=== PATIENT | female | born 1990 | race Caucasian/White ===

== ENCOUNTER 2021-12-29 08:16 | Outpatient (CLI) | payer BC, SELFPAY ==
--- NOTE | 2021-12-29 08:15 | CRLHL7_ITS ---
For Patients: As a result of the Cures Act, medical imaging exams and procedure reports are released immediately into your electronic medical record. You may view this report before your referring provider. If you have questions, please contact your health care provider. INDICATION: First trimester scan, establish dates. COMPARISON: None. TECHNIQUE: Real-time paez-scale imaging of the pelvis was performed. FINDINGS: Sonographic imaging demonstrates a single living intrauterine gestation. The embryo demonstrates a regular cardiac rate measuring 115 beats per minute. The embryo`s crown-rump length measurement of 0.6 cm corresponds to a gestational age of 6 weeks 3 days with a sonographic due date of August 21, 2022. There is a normal-appearing yolk sac measuring 3 mm. There are no gross abnormalities noted within the embryo at this early state of development. The placenta has not yet developed. The gestational sac has a normal appearance and there is no evidence of a perigestational hemorrhage. The amount of fluid within the sac appears appropriate for gestational age. The cervix is closed. The myometrium appears normal. The ovaries are of normal size. The right ovary measures 5.7 x 2.2 x 2.1 cm. The left ovary measures 5.2 x 3.2 x 3.1 cm. There are 2 cysts in the left ovary one of which measures 3.1 x 2.3 x 2.5 cm and is completely cystic. There is a smaller cyst measuring 2.1 x 1.5 x 1.3 cm likely the corpus luteum cyst of . There are no suspicious fluid collections noted in the cul-de-sac. IMPRESSION: Normal first trimester OB ultrasound exam. Gestational age calculated at 6 weeks 3 days with a sonographic due date of August 21, 2022. Dictated by Jeremías Schreiber MD @ 12/29/2021 10:10:54 AM (Electronically Signed)
== END 2021-12-29 08:17 | disposition home or self-care (01) ==
PROVIDERS: Visit Provider Advanced Practice Midwife
DX: Z34.91 Encounter for supervision of normal pregnancy, unspecified, first trimester (principal); Z3A.08 8 weeks gestation of pregnancy
CPT/HCPCS: 76817

== ENCOUNTER 2021-12-29 10:13 | Outpatient (CLI) | payer BC, SELFPAY ==
--- OUTSIDE RECORDS SUMMARY | 2021-12-29 10:16 | XMS_ITS | Encounter Summary ---
:1990 Author Organization [facility] Address [address] [place] [address] Care Team Providers Name Role Phone Shreya Mccurdy MD Primary Care Provider [phone] Reason for Visit Reason Onset Date Comments Med Refill 02/24/2021 Encounter Details Date Type Department Care Team Description 02/24/2021 Refill [place], Encounter for [address] [place] [address] [address] Shreya Palmer MD surveillance of [place], [place] [address] [place] [address] contraceptive pills [phone] [place] [address] (Wo rk) Social History Tobacco Use Types Packs/Day Years Used Date Never Smoker Smokeless Tobacco: Never Used Alcohol Use Standard Drinks/Week Comments Yes 1 (1 standard drink = 0.6 oz pure alcoho l) occasional Alcohol Habits Answer Date Recorded How often do you have a drink containing alcohol? 2-4 times a month 03/01/2020 How many drinks containing alcohol do you have on a Not aske d typical day when you are drinking? How often do you have six or more drinks on one Not asked occasion? Comment: occasional 02/24/2019 Physical Activity Answer Date Recorded On average, how many days per week do you engage in moderate to 5 days 02/24/2019 strenuous exercise (like walking fast, running, jogging, dancing, swimming, biking, or other activities that cause a light or heavy sweat)? On average, how many minutes do you engage in exercise at th is 60 min 02/24/2019 level? Education Answer Date Recorded What is the highest level of school Bachelor's degree (e.g., BA, AB, 02/01/2018 you have completed or the highest BS) degree you have received? Sex Assigned at Date Recorded Female 02/25/2019 2:21 PM REFUELER documented as of this encounter Miscellaneous Notes Telephone Encounter - Edilma So LPN - 02/24/2021 3:41 PM REFUELER Last visit in provider department: 03/01/20 Last visit requested medication was discussed:03/01/20 ANTHONY Alvarez PA-C Upcoming appointment with provider: 03/08/[address] Mccurdy Last Rx: 03/01/20 #84 with 3 refills Requested Prescriptions Pending Prescriptions Disp Refills ??? levonorgestrel-ethinyl estradiol (NORDETTE) 0.15-30 MG-MCG per tablet 84 tablet 3 Sig: Take 1 tablet by mouth 1 (one) time each day Labs:02/07/18 PAP Vitals: BP Readings from Last 2 Encounters: 03/01/20 122/70 02/24/19 120/70 ELER documented in this encounter Plan of Treatment Not on filedocumented as of this encounter Visit Diagnoses Diagnosis Encounter for surveillance of contracept maximilian pills documented in this encounter Care Teams High Pressure Kettle Operator Relationship Specialty Start Date End Date Shreya Mccurdy MD PCP - General Family Medicine 01/28/[address] [place] [address] 11 [place] [address] documented as of this encounter
--- OUTSIDE RECORDS SUMMARY | 2021-12-29 10:16 | XMS_ITS | Encounter Summary ---
:1990 Author Organization [facility] Address [address] [place] [id number] Care Team Providers Name Role Phone Shreya Mccurdy MD Primary Care Provider [phone] Encounter Details Date Type Department Care Team Description 03/15/2021 [facility] Screening for diabetes melli tus; [address], [place], [place] [address] Social History Tobacco Use Types Packs/Day Years [...] minutes do you engage in exercise at is 60 min 02/24/2019 level? Education Answer Date Recorded What is the highest level of school Bachelor's degree (e.g., BA, AB, 02/01/2018 you have completed or the highest BS) degree you have received? 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 LIPID PANEL Routine 03/15/2021 8:22 AM Screening, lipid Resul ts for this GYMNASTIC TEACHER procedure are i n the results section . documented in this encounter Results (ABNORMAL) Lipid panel (03/15/2021 8:22 AM GYMNASTIC TEACHER) athologist Signature Cholesterol 198 0 - 199 03/15/2021 [facility] mg/dL 2:03 PM [facility] Comment: Recommended by National Cholesterol Education Program (ATP III) -------- Cholesterol Ranges -------- <200 ?Desirable 200-239 ? Borderline high >=240 ? High Triglycerides 69 0 - 149 mg/dL 03/15/2021 2:03 PM [facility] Comment: -------- TRIG Ranges -------- <150 ?Normal 150-199 ? Borderline high 200-499 ? High >=500 ? Very high HDL 56 40 - 250 mg/dL 03/15/2021 2:03 PM [facility] Comment: -------- HDL Ranges -------- <40 ?Low 40-59 ?Normal >=60 ? Optimal LDL Calculated 128 (H) 0 - 99 mg/dL 03/15/2021 2:03 PM [facility] Comment: -------- LDL Ranges -------- <100 ? Optimal 100-129 ?Near optimal/above op timal 130-159 ?Borderline high 160-189 ?High >=190 ?Very high Fasting? Yes 03/15/2021 8:24 AM GYMNASTIC TEACHER [facility] Specimen Anatomical Collection Method Collection Time Receive d Time (Source) Location / / Volume Laterality Blood (Blood, 03/15/2021 8:22 AM 03/15/19 Venous) GYMNASTIC TEACHER 12:46 PM GYMNASTIC TEACHER Shreya Mccurdy MD LAB BLOOD ORDERABLES Performing Organization Address City/[facility]/ZIP Code Phon e Number [facility] [address] [place] [address] Glucose, fasting (03/15/2021 8:22 AM GYMNASTIC TEACHER) P athologist Signature Glucose 95 70 - 100 03/15/2021 [facility] mg/dL 2:03 PM GYMNASTIC TEACHER [facility] Specimen Anatomical Collection Method Collection Time Receive d Time (Source) Location / / Volume Laterality Blood (Blood, 03/15/2021 8:22 AM 03/15/19 Venous) GYMNASTIC TEACHER 12:46 PM GYMNASTIC TEACHER Shreya Mccurdy MD LAB BLOOD ORDERABLES Performing Organization Address City/State/ZIP Code Phon e Number [facility] [address] [place] [address] documented in this encounter Visit Diagnoses Diagnosis Screening for diabetes mellitus Screening, lipid documented in this encounter Care Teams Grinder Set Up Operator Centerless Relationship Specialty Start Date End Date Shreya Mccurdy MD PCP - General Family Medicine 01/28/[address] [place] [address] 11 [place] [id number] documented as of this encounter
--- OUTSIDE RECORDS SUMMARY | 2021-12-29 10:16 | XMS_ITS | Encounter Summary ---
:1990 Author Organization [facility] Address [address] [place] [address] Care Team Providers Name Role Phone Faith Alvarez PA-C Primary Care Provider Unavailable Reason for Visit Reason Comments Annual Exam Encounter Details Date Type Department Care Team Description 03/01/2020 Office Visit [place] Faith Alvarez, Annual physical exam (Primar y Dx); [address] Encounter for surveillance o f contraceptive pills; [place], [place] [address] Immunization due; [phone] Encounter for a dministration of vaccine Social History Tobacco Use Types Packs/Day Years [...] at Date Recorded Female 02/25/2019 2:21 PM VENTILATING EXPERT documented as of this encounter Last Filed Vital Signs Vital Sign Reading Time Taken Comments Blood Pressure 122/70 03/01/2020 3:59 PM VENTILATING EXPERT Pulse 68 03/01/2020 3:59 PM VENTILATING EXPERT Temperature 36.7 ??C (98 ??F) 03/01/2020 3:59 PM VENTILATING EXPERT Respiratory Rate 14 03/01/2020 3:59 PM VENTILATING EXPERT Oxygen Saturation 98% 03/01/2020 3:59 PM VENTILATING EXPERT Inhaled Oxygen Concentration - - Weight 68.9 kg (151 lb 14.4 oz) 03/01/2020 3:59 PM VENTILATING EXPERT Height 165.5 cm (5' 5.16) 03/01/2020 3:59 PM VENTILATING EXPERT Body Mass Index 25.16 03/01/2020 3:59 PM VENTILATING EXPERT documented in this encounter Patient Instructions Patient InstructionsFaith Alvarez PA-C - 03/01/2020 4:00 PM CST Images from the original note were not included. Patient Education Health Maintenance, Female Adopting a healthy lifestyle and getting preventive care are important in promoting health and wellness. Ask your health care provider about: ?? The right schedule for you to have regular tests and exams. ?? Things you can do on your own to prevent diseases and keep yourself healthy. What should I know about diet, weight, and exercise? Eat a healthy diet ?? Eat a diet that includes plenty of vegetables, fruits, low-fat dairy products, and lean protein. ?? Do not eat a lot of foods that are high in solid fats, added sugars, or sodium. Maintain a healthy weight Body mass index (BMI) is used to identify weight problems. It estimates body fat based on height andweight. Your health care provider can help determine your BMI and help you achieve or maintain a healthy weight. Get regular exercise Get regular exercise. This is one of the most important things you can do for your health. Most adults should: ?? Exercise for at least 150 minutes each week. The exercise should increase your heart rate and make you sweat (moderate-intensity exercise). ?? Do strengthening exercises at least twice a week. This is in addition to the moderate-intensity exercise. ?? Spend less time sitting. Even light physical activity can be beneficial. Watch cholesterol and blood lipids Have your blood tested for lipids and cholesterol at 20 years of age, then have this test every 5 years. Have your cholesterol levels checked more often if: ?? Your lipid or cholesterol levels are high. ?? You are older than 40 years of age. ?? You are at high risk for heart disease. What should I know about cancer screening? Depending on your health history and family history, you may need to have cancer screening at various ages. This may include screening for: ?? Breast cancer. ?? Cervical cancer. ?? Colorectal cancer. ?? Skin cancer. ?? Lung cancer. What should I know about heart disease, diabetes, and high blood pressure? Blood pressure and heart disease ?? High blood pressure causes heart disease and increases the risk of stroke. This is more likely todevelop in people who have high blood pressure readings, are of descent, or are overweight. ?? Have your blood pressure checked: ? Every 3-5 years if you are 18-39 years of age. ? Every year if you are 40 years old or older. Diabetes Have regular diabetes screenings. This checks your fasting blood sugar level. Have the screening done: ?? Once every three years after age 40 if you are at a normal weight and have a low risk for diabetes. ?? More often and at a younger age if you are overweight or have a high risk for diabetes. What should I know about preventing infection? Hepatitis B If you have a higher risk for hepatitis B, you should be screened for this virus. Talk with your health care provider to find out if you are at risk for hepatitis B infection. Hepatitis C Testing is recommended for: ?? Everyone born from 1945 through 1965. ?? Anyone with known risk factors for hepatitis C. Sexually transmitted infections (STIs) ?? Get screened for STIs, including gonorrhea and chlamydia, if: ? You are sexually active and are younger than 24 years of age. ? You are older than 24 years of age and your health care provider tells you that you are at risk for this type of infection. ? Your sexual activity has changed since you were last screened, and you are at increased risk for chlamydia or gonorrhea. Ask your health care provider if you are at risk. ?? Ask your health care provider about whether you are at high risk for HIV. Your health care provider may recommend a prescription medicine to help prevent HIV infection. If you choose to take medicine to prevent HIV, you should first get tested for HIV. You should then be tested every 3 months for as long as you are taking the medicine. ?? If you are about to stop having your period (premenopausal) and you may become , seek counseling before you get . ?? Take 400 to 800 micrograms (mcg) of folic acid every day if you become . ?? Ask for control (contraception) if you want to prevent . Osteoporosis and menopause Osteoporosis is a disease in which the bones lose minerals and strength with aging. This can result in bone fractures. If you are 65 years old or older, or if you are at risk for osteoporosis and fractures, ask your health care provider if you should: ?? Be screened for bone loss. ?? Take a calcium or vitamin D supplement to lower your risk of fractures. ?? Be given hormone replacement therapy (HRT) to treat symptoms of menopause. Follow these instructions at home: Lifestyle ?? Do not use any products that contain nicotine or tobacco, such as cigarettes, e-cigarettes, and chewing tobacco. If you need help quitting, ask your health care provider. ?? Do not use street drugs. ?? Do not share needles. ?? Ask your health care provider for help if you need support or information about quitting drugs. Alcohol use ?? Do not drink alcohol if: ? Your health care provider tells you not to drink. ? You are , may be , or are planning to become . ?? If you drink alcohol: ? Limit how much you use to 0-1 drink a day. ? Limit intake if you are . ?? Be aware of how much alcohol is in your drink. In the [place] one drink equals one 12 oz bottle of beer (355 mL), one 5 oz glass of wine (148 mL), or one 1?? oz glass of hard liquor (44 mL). General instructions ?? Schedule regular health, dental, and eye exams. ?? Stay current with your vaccines. ?? Tell your health care provider if: ? You often feel depressed. ? You have ever been abused or do not feel safe at home. Summary ?? Adopting a healthy lifestyle and getting preventive care are important in promoting health and wellness. ?? Follow your health care provider's instructions about healthy diet, exercising, and getting tested or screened for diseases. ?? Follow your health care provider's instructions on monitoring your cholesterol and blood pressure. This information is not intended to replace advice given to you by your health care provider. Make sure you discuss any questions you have with your health care provider. Document Released: 08/21/2011 Document Revised: 01/29/2019 Document Reviewed: 01/29/2019 VFA Interactive Patient Education ?? 2020 [employer]. ILATING EXPERT documented in this encounter Progress Notes Faith Alvarez PA-C - 03/01/2020 4:00 PM CST Subjective Patient ID: Anika Doan is a 30 y.o. female. Chief Complaint Patient presents with ??? Annual Exam HPI This is a otherwise healthy 30-year-old female who presents today for annual exam and for refill of OCP. 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 She lives with her fianc?? in [place]. They are planning a wedding for August. She describes some stress from the last year of being a teacher in a pandemic, teaching online, starting a masters degree. However, overall she is coping remarkably well. She enjoys staying active by cycling, uses a animal trainer supervisor to continue cycling in the winter, doing barre classes. She notes that a few months ago she had 2 periods in 1 month, her menses have otherwise been very regular on the pill. It was a very stressful month when this occurred and wonders she if her menses could be affected by stress. 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 LMP 02/09/20. Sexually active in a relationship. Declines STD testing today. Last Pap smear was done and normal in January 2018. Next due in January 2021. Denies history of abnormal Pap smears. Family history is remarkable for grandmother with breast cancer in her 70s. Denies other breast, ovarian, uterine, or colon cancer's in the family. On combination OCP for contraception. She is happy with this form of contraception and would like to continue. She and her partner would like to start a family in a few years. Current Outpatient Medications: ??? levonorgestrel-ethinyl estradiol (NORDETTE) 0.15-30 MG-MCG per tablet, Take 1 tablet by mouth 1 (one) time each day, Disp: 84 tablet, Rfl: 3 Allergies as of 03/01/2020 - Reviewed 03/01/2020 Allergen Reaction Noted ??? Amoxicillin Rash Past Medical History: Diagnosis Date ??? Known health problems: none Past Surgical History: Procedure Laterality Date ??? WISDOM TOOTH EXTRACTION 2012 Family History Problem Relation Age of Onset ??? Hyperlipidemia Mother ??? Crohn's disease Brother ??? Breast cancer Paternal Grandmother in her 70's ??? Macular degeneration Paternal Grandmother ??? No Known Problems Father ??? No Known Problems Mother's Sister ??? No Known Problems Father's Sister ??? Thyroid cancer Maternal Grandmother ??? Hyperlipidemia Maternal Grandfather ??? Other Paternal Grandfather Social History Socioeconomic History ??? Marital status: Single Spouse name: None ??? Number of children: None ??? Years of education: None ??? Highest education level: Bachelor's degree (e.g., BA, AB, BS) Occupational History ??? 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 Financial resource strain: None ??? Food insecurity Worry: None Inability: None ??? Transportation needs Medical: None Non-medical: None Tobacco Use ??? Smoking status: Never Smoker ??? Smokeless tobacco: Never Used Substance and Sexual Activity ??? Alcohol use: Yes Alcohol/week: 1.0 standard drinks Types: 1 Cans of beer per week Frequency: 2-4 times a month Comment: occasional ??? Drug use: No ??? Sexual activity: Yes Partners: Male control/protection: OCP Lifestyle ??? Physical activity Days per week: 5 days Minutes per session: 60 min ??? Stress: None Relationships ??? Social connections Talks on phone: None Gets together: None Attends synagogue service: None Active member of club or organization: None Attends meetings of clubs or organizations: None Relationship status: None ??? Intimate partner violence Fear of current or ex partner: None Emotionally abused: None Physically abused: None Forced sexual activity: None Other Topics Concern ??? None Social History Narrative Enjoys weightlifting, yoga, and cycling for physical activity. Review of Systems HEENT, Eyes, respiratory, cardio, GI, genitourinary, endocrine, musculoskeletal, neurologic and psychiatric history were reviewed and negative except as per HPI. Immunization History Administered Date(s) Administered ??? Influenza 6mo-49yrs Quad Preservative Free IM 02/06/2017, 02/07/2018, 02/24/2019, 03/01/2020 ??? Tdap 03/01/2020 Objective Visit Vitals BP 122/70 (BP Location: Right arm, Patient Position: Sitting) Pulse 68 Temp 36.7 ??C (98 ??F) (Temporal) Resp 14 Ht 1.655 m (5' 5.16) Wt 68.9 kg (151 lb 14.4 oz) SpO2 98% BMI 25.16 kg/m?? Smoking Status Never Smoker BSA 1.78 m?? Physical Exam Vitals signs and nursing note reviewed. Constitutional: General: She is not in acute distress. Appearance: Normal appearance. She is well-developed. HENT: Head: Normocephalic and atraumatic. Right Ear: Tympanic membrane, ear canal and external ear normal. Left Ear: Tympanic membrane, ear canal and external ear normal. Nose: Nose normal. No congestion or rhinorrhea. Mouth/Throat: Mouth: Mucous membranes are moist. Pharynx: Oropharynx is clear. No oropharyngeal exudate or posterior oropharyngeal erythema. Eyes: Extraocular Movements: Extraocular movements intact. Conjunctiva/sclera: Conjunctivae normal. Pupils: Pupils are equal, round, and reactive to light. Neck: Musculoskeletal: Normal range of motion and neck supple. Thyroid: No thyromegaly. Cardiovascular: Rate and Rhythm: Normal rate and regular rhythm. Heart sounds: Normal heart sounds. No murmur. Pulmonary: Effort: Pulmonary effort is normal. Breath sounds: Normal breath sounds. No wheezing or rales. Abdominal: General: Bowel sounds are normal. Palpations: Abdomen is soft. There is no mass. Tenderness: There is no abdominal tenderness. Musculoskeletal: General: No deformity or signs of injury. Lymphadenopathy: Cervical: No cervical adenopathy. Skin: General: Skin is warm and dry. Capillary Refill: Capillary refill takes less than 2 seconds. Findings: No rash. Neurological: General: No focal deficit present. Mental Status: She is alert. Deep Tendon Reflexes: Reflexes normal. Psychiatric: Attention and Perception: Attention normal. Mood and Affect: Mood and affect normal. Speech: Speech normal. Behavior: Behavior normal. Thought Content: Thought content normal. No visits with results within 30 Day(s) from this visit. Latest known visit with results is: No results found for any previous visit. Assessment/Plan Diagnoses and all orders for this visit: Annual physical exam Encounter for surveillance of contraceptive pills - levonorgestrel-ethinyl estradiol (NORDETTE) 0.15-30 MG-MCG per tablet; Take 1 tablet by mouth 1 (one) time each day Immunization due - Tdap vaccine greater than or equal to 7yo IM Encounter for administration of vaccine - Flu Vaccine 6mo-49yrs Quad Preservative Free IM Satisfactory annual exam. Combination OCP refilled for 1 year. Immunizations updated today per orders. Declines STD testing. Pap smears up-to-date, will be due at annual exam next year. No indications for early breast cancer colon cancer screening. Discussed breast self exams. Encourage patient to continue her healthy lifestyle. See AVS for additional patient education. Return in 1 year for next annual exam, sooner if concerns. Questions answered, patient verbalized understanding and is in agreement with plan. This dictation was created using voice recognition software and therefore may contain errors that went unnoticed. Faith Alvarez PA-C ILATING EXPERT documented in this encounter Plan of Treatment Not on filedocumented as of this encounter Visit Diagnoses Diagnosis Annual physical exam - Primary Routine general medical examination at a health care facility Encounter for surveillance of contracept maximilian pills Immunization due Encounter for administration of vaccine documented in this encounter Care Teams Maintenance Painter Relationship Specialty Start Date End Date Faith Alvarez PA-C PCP - General Family Medicine 12/13/1804/19 documented as of this encounter
--- OUTSIDE RECORDS SUMMARY | 2021-12-29 10:16 | XMS_ITS | Encounter Summary ---
:1990 Author Organization [facility] Address [address] [place] [address] Care Team Providers Name Role Phone Faith Alvarez PA-C Primary Care Provider Unavailable Reason for Visit Reason Comments Med Refill Encounter Details Date Type Department Care Team Description 04/07/2019 Refill [place] Faith Alvarez, Encounter for surveillance [address] [facility] [address] [facility] [address] of contraceptive pills [place], [place] [address] Social History Tobacco Use Types [...] at Date Recorded Female 02/25/2019 2:21 PM ADULT MINISTRIES DIRECTOR documented as of this encounter Miscellaneous Notes Telephone Encounter - Faith Alvarez PA-C - 04/09/2019 8:56 AM CST New rx sent. T MINISTRIES DIRECTOR Telephone Encounter - Janelle Martines LPN - 04/08/2019 2:57 PM CST Refill RX please:) T MINISTRIES DIRECTOR Telephone Encounter - Annmarie Desai LPN - 04/08/2019 10:15 AM ADULT MINISTRIES DIRECTOR Requested Prescriptions Pending Prescriptions Disp Refills ??? MARLISSA 0.15-30 MG-MCG per tablet [Pharmacy Med Name: MARLISSA 0.15-30MG-MCG TABS] 84 tablet 0 Sig: TAKE ONE TABLET BY MOUTH EVERY DAY #84, 3 refills FAXED 02/24/2019 to [place] [address] (requesting pharmacy) E-Prescribing Status Outpatient Medication Detail levonorgestrel-ethinyl estradiol (ALTAVERA) 0.15-30 MG-MCG per tablet Sig: Take 1 tablet by mouth 1 (one) time each day Sent to pharmacy as: Levonorgestrel-Ethinyl Estrad 0.15-30 MG-MCG Oral Tablet (ALTAVERA) Class: Fax Route: Oral E-Prescribing Status: Transmission to pharmacy failed (02/24/2019 ??4:18 PM ADULT MINISTRIES DIRECTOR) Interface, Surescripts In faxed this order at 02/24/2019 4:18 PM. Renewals Renewal requests to authorizing provider (Faith Alvarez PA-C) prohibited Renewal provider: Carin Hernandez, DNP, UNDERWRITING SUPPORT SPECIALIST, BUTTER GRADER Was this manually faxed to pharmacy? Thank you! T MINISTRIES DIRECTOR documented in this encounter Plan of Treatment Not on filedocumented as of this encounter Visit Diagnoses Diagnosis Encounter for surveillance of contracept maximilian pills documented in this encounter Care Teams Podiatry Assistant Relationship Specialty Start Date End Date Faith Alvarez PA-C PCP - General Family Medicine 12/13/1804/19 documented as of this encounter
--- OUTSIDE RECORDS SUMMARY | 2021-12-29 10:16 | XMS_ITS | Encounter Summary ---
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 Patient due for annual exam. R PLANTATION MANAGER Telephone Encounter - Jing Grossman MA - 02/19/2020 8:09 AM SUGAR PLANTATION MANAGER Last visit in provider department: 02/24/2019 Last visit requested medication was discussed: 02/24/2019, WWBraydon Upcoming appointment with provider: 03/01/2020 Last Rx: 04/09/2019, #84, 3 refills Requested Prescriptions Pending Prescriptions Disp Refills ??? levonorgestrel-ethinyl estradiol (NORDETTE) 0.15-30 MG-MCG per tablet [Pharmacy Med Name: LEVONORGESTREL-ETHINYL 0.15-30 TABS] 84 tablet 3 Sig: TAKE ONE TABLET BY MOUTH EVERY DAY Labs: 02/07/18 Pap Smear Vitals: BP Readings from Last 2 Encounters: 02/24/19 120/70 02/07/18 100/70 R PLANTATION MANAGER documented in this encounter Plan of Treatment Not on filedocumented as of this encounter Visit Diagnoses Diagnosis Encounter for surveillance of contracept maximilian pills documented in this encounter Care Teams Yard Engineer Relationship Specialty Start Date End Date Shreya Mccurdy MD PCP - General Family Medicine 01/28/[address] [place] [phone] documented as of this encounter
--- OUTSIDE RECORDS SUMMARY | 2021-12-29 10:16 | XMS_ITS | Encounter Summary ---
:1990 Author Organization [facility] Address [address] [place] [address] Care Team Providers Name Role Phone Chanel Cavazos MD Primary Care Provider [phone] Reason for Visit Reason Comments Annual Exam Encounter Details Date Type Department Care Team Description 03/08/2021 Office Visit [place], Screening, lipid (Primary Dx ); [address] [place] [address] [address] Chanel Palmer MD Screening for diabetes mellitus; [place], [place] [address] 111 [facility] Screening for cervical cance r; [phone] [address] Preventative health care; [place], [place] Encounter fo r surveillance of contraceptive pills [phone] Social History Tobacco Use Types Packs/Day Years [...] at Date Recorded Female 02/25/2019 2:21 PM FINANCIAL SERVICES EDUCATION CONSULTANT documented as of this encounter Last Filed Vital Signs Vital Sign Reading Time Taken Comments Blood Pressure 118/76 03/08/2021 3:15 PM FINANCIAL SERVICES EDUCATION CONSULTANT Pulse 71 03/08/2021 3:15 PM FINANCIAL SERVICES EDUCATION CONSULTANT Temperature 36.3 ??C (97.3 ??F) 03/08/2021 3:15 PM FINANCIAL SERVICES EDUCATION CONSULTANT Respiratory Rate 20 03/08/2021 3:15 PM FINANCIAL SERVICES EDUCATION CONSULTANT Oxygen Saturation 98% 03/08/2021 3:15 PM FINANCIAL SERVICES EDUCATION CONSULTANT Inhaled Oxygen Concentration - - Weight 68.8 kg (151 lb 11.2 oz) 03/08/2021 3:15 PM FINANCIAL SERVICES EDUCATION CONSULTANT Height 165 cm (5' 4.96) 03/08/2021 3:15 PM FINANCIAL SERVICES EDUCATION CONSULTANT Body Mass Index 25.27 03/08/2021 3:15 PM FINANCIAL SERVICES EDUCATION CONSULTANT documented in this encounter Progress Notes MARGOT De Leon - 03/08/2021 3:20 PM CST Nurse Note Patient is here for her annual physical. PHQ9 = 2, GAD7=0 NCIAL SERVICES EDUCATION CONSULTANT Chanel Cavazos MD - 03/08/2021 3:20 PM CST PREVENTIVE FEMALE VISIT Subjective Filomena Borden is a 31 y.o. female who presents for a routine preventive physical exam. The patient has the following concerns: 1. Has had annual pap smears, gets letters that her results are normal but the records are not in our chart. She is sure that she does not receive care elsewhere. She is agreeable to repeat pap today. 2. Missed one dose of OCP over New Years weekend. Has not missed any since and did take a double dose the next day. Period started today. 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 Social History Substance and Sexual Activity Alcohol Use Yes ??? Alcohol/week: 1.0 standard drink ??? Types: 1 Cans of beer per week Comment: occasional Social History Tobacco Use Smoking Status Never Smoker Smokeless Tobacco Never Used Diet well-balanced Exercise: Daily cycling, intermittent yoga and weightlifting Patient's medications, allergies, past medical, surgical, social and family histories were reviewed and updated as appropriate. Objective Utilization / Navigation of Health Care Systems: PHQ-9 mental health screening. Scored: DULCE-7 anxiety screening. Scored: 0 Mini-Cog test. Scored: / BMI/weight management reviewed. BMI: Body mass index is 25.27 kg/m??. VITAL SIGNS Visit Vitals BP 118/76 (BP Location: Right arm, Patient Position: Sitting) Pulse 71 Temp 36.3 ??C (97.3 ??F) (Temporal) Resp 20 Ht 1.65 m (5' 4.96) Wt 68.8 kg (151 lb 11.2 oz) LMP 03/08/2021 SpO2 98% BMI 25.27 kg/m?? Smoking Status Never Smoker BSA 1.78 m?? PHYSICAL EXAMINATION Gen: alert, NAD Psych: affect and mood normal HEENT: NCAT, eyes anicteric, no conjunctival injection Neck: supple, no LAD, thyromegaly nodules or masses palpated Heart: S1 S2 RRR, no murmur appreciated Lungs: normal work of breathing on room air, CTAB without wheezes rales or rhonchi Abdomen: normoactive BS, soft, non-distended, non-tender : normal external genitalia without lesions, physiologic vaginal discharge only consistent with menses, vaginal mucosa moist, cervix normal appearance without lesions/non-friable. Ext: no edema or cyanosis Neuro: A&Ox3, EOMI, PERRLA, visual gibson intact, speech fluent, comprehension intact, recent memory intact MSK: normal muscle tone and bulk, no obvious deformities Skin: no rashes, warm and dry Assessment/Plan Health Maintenance/Well adult exam Anticipatory guidance/counseling given included: --Discussed moderation in sodium/caffeine intake, caloric balance, sufficient fresh fruits/vegetables, fiber, daily folate intake (0.4 - 0.8mg supplement if capable of ) --Discussed eye exams & dental care --Encouraged regular exercise at least 30 minutes daily five days per week --Discussed tobacco, alcohol, or other drug use; availability of treatment for abuse. Immunizations: reviewed today, discussed vaccines that she is due for. PREVENTIVE HEALTH STUDIES Reviewed and updated health maintenance in the chart with patient. Health Maintenance Topic Date Due ??? Pap Smear 02/07/2021 ??? [facility] Pneumococcal Vaccine: 65+ Years (1 of 1 - PPSV23) 02/27/2056 ??? COVID-19 Vaccine Completed ? ? [facility] Pneumococcal Vaccine: <64 Aged Out ??? HPV Vaccines Aged Out Problem List Items Addressed This Visit Other Preventative health care {Breast cancer screening: not yet indicated {Cervical cancer screening: co-testing due today. Negative pap 2017. No history of prior abnormal paps.Has had annual paps but records do not remain in her chart; if normal 2021 co-testing then DO NOT REPEAT for 5 years. {HIV Screening: {Lipid screening: Due today for family history, elevated BMI {Statin use: not indicated {Labs: screen for DM with fasting glucose, elevated BMI risk factor Other Visit Diagnoses Screening, lipid - Primary Relevant Orders Lipid panel Screening for diabetes mellitus Relevant Orders Glucose, fasting Screening for cervical cancer Relevant Orders Pap Smear HPV High Risk DNA Detection with Genotyping Encounter for surveillance of contraceptive pills Relevant Medications levonorgestrel-ethinyl estradiol (NORDETTE) 0.15-30 MG-MCG per tablet Anticipatory guidance given for planning to pursue sometime this spring or summer. Chanel Cavazos MD NCIAL SERVICES EDUCATION CONSULTANT documented in this encounter Miscellaneous Notes Assessment & Plan Note - Chanel Cavazos MD - 03/07/2021 3:18 PM FINANCIAL SERVICES EDUCATION CONSULTANT Associated Problem(s): Preventative health care {Breast cancer screening: not yet indicated {Cervical cancer screening: co-testing due today. Negative pap 2017. No history of prior abnormal paps.Has had annual paps but records do not remain in her chart; if normal 2022 co-testing then DO NOT REPEAT for 5 years. {HIV Screening: {Lipid screening: Due today for family history, elevated BMI {Statin use: not indicated {Labs: screen for DM with fasting glucose, elevated BMI risk factor NCIAL SERVICES EDUCATION CONSULTANT documented in this encounter Plan of Treatment Not on filedocumented as of this encounter Procedures Procedure Name Priority Date/Time Associated Comments Diagnosis HPV HIGH RISK DNA Routine 03/08/2021 3:34 PM Screening for Res ults for this DETECTION WITH FINANCIAL SERVICES EDUCATION CONSULTANT cervical cancer procedure are in GENOTYPING the results section. PAP TEST Routine 03/08/2021 3:34 PM Screening for Results for this FINANCIAL SERVICES EDUCATION CONSULTANT cervical cancer procedure ar e in the results section. documented in this encounter Results Glucose, fasting (03/15/2021 8:22 AM FINANCIAL SERVICES EDUCATION CONSULTANT) athologist Signature Glucose 95 70 - 100 03/15/2021 [facility] mg/dL 2:03 PM FINANCIAL SERVICES EDUCATION CONSULTANT [facility] Specimen Anatomical Collection Method Collection Time Receive d Time (Source) Location / / Volume Laterality Blood (Blood, 03/15/2021 8:22 AM 03/15/19 Venous) FINANCIAL SERVICES EDUCATION CONSULTANT 12:46 PM FINANCIAL SERVICES EDUCATION CONSULTANT Chanel Cavazos MD LAB BLOOD ORDERABLES Performing Organization Address City/State/ZIP Code Phon e Number [facility] [address] [place] [address] (ABNORMAL) Lipid panel (03/15/2021 8:22 AM FINANCIAL SERVICES EDUCATION CONSULTANT) athologist Signature Cholesterol 198 0 - 199 03/15/2021 [facility] mg/dL 2:03 PM [facility] Comment: Recommended by National Cholesterol Education Program (ATP III) -------- Cholesterol Ranges -------- <200 ?Desirable 200-239 ? Borderline high >=240 ? High Triglycerides 69 0 - 149 mg/dL 03/15/2021 2:03 PM [facility] Comment: -------- TRIG Ranges -------- <150 ?Normal 150-199 ? Borderline high 200-499 ? High >=500 ? Very high HDL 56 40 - 250 mg/dL 03/15/2021 2:03 PM FINANCIAL SERVICES EDUCATION CONSULTANT [facility] Comment: -------- HDL Ranges -------- <40 ?Low 40-59 ?Normal >=60 ? Optimal LDL Calculated 128 (H) 0 - 99 mg/dL 03/15/2021 2:03 PM FINANCIAL SERVICES EDUCATION CONSULTANT [facility] Comment: -------- LDL Ranges -------- <100 ? Optimal 100-129 ?Near optimal/above op timal 130-159 ?Borderline high 160-189 ?High >=190 ?Very high Fasting? Yes 03/15/2021 8:24 AM FINANCIAL SERVICES EDUCATION CONSULTANT [facility] Specimen Anatomical Collection Method Collection Time Receive d Time (Source) Location / / Volume Laterality Blood (Blood, 03/15/2021 8:22 AM 03/15/19 22 Venous) FINANCIAL SERVICES EDUCATION CONSULTANT 12:46 PM FINANCIAL SERVICES EDUCATION CONSULTANT Chanel Cavazos MD LAB BLOOD ORDERABLES Performing Organization Address City/State/ZIP Code Phon e Number [facility] [address] [place] [address] HPV High Risk DNA Detection with Genotyping (03/08/2021 3:34 PM FINANCIAL SERVICES EDUCATION CONSULTANT) [facility] Method Time Signature Source Cx/Endocervi 03/14/2021 [facility] 12:32 PM LABORATORIES FINANCIAL SERVICES EDUCATION CONSULTANT HPV Type 16 Negative Negative 03/14/2021 [facility] 12:32 PM LABORATORIES FINANCIAL SERVICES EDUCATION CONSULTANT HPV Type 18 Negative Negative 03/14/2021 [facility] 12:32 PM LABORATORIES FINANCIAL SERVICES EDUCATION CONSULTANT HPV non-Type Negative Negative 03/14/2021 [facility] 16 or 18 12:32 PM LABORATORIES FINANCIAL SERVICES EDUCATION CONSULTANT Comment: The following Other High Risk HPV types were not detected: 31, 33, 35, 39, 45, 51, 52, 56, 58, 59, 66, and 68 ADDITIONAL INFORMATIO N This test has been modified from the man ufsurajr's instructions. Its performance characteri stics were determined by [facility] in a manner co nsistent with CLIA requirements. This test has not been jose ared or approved by the U.S. Food and Drug Administration. Test Performed by: [address] [address] Leg Breaker: Marcel Joshi M.D. Ph. D.; CLIA# [id number] Specimen (Source) Anatomical Collection Method Collection Time Re ceived Time Location / / Volume Laterality Pap collection 03/08/2021 3:34 03/09/2021 1:26 bottle PM FINANCIAL SERVICES EDUCATION CONSULTANT PM FINANCIAL SERVICES EDUCATION CONSULTANT Chanel Cavazos MD LAB CYTOLOGY ORDERABLES Performing Organization Address City/State/ZIP Code Phon e Number [facility] see result attachment for specific address Pap Smear (03/08/2021 3:34 PM FINANCIAL SERVICES EDUCATION CONSULTANT) Specimen Anatomical Collection Method Collection Time Receive d Time (Source) Location / / Volume Laterality Sure Path PAP, 03/08/2021 3:34 PM 022 3:22 screen FINANCIAL SERVICES EDUCATION CONSULTANT PM FINANCIAL SERVICES EDUCATION CONSULTANT Narrative [facility] - 02/20 9:12 AM FINANCIAL SERVICES EDUCATION CONSULTANT ? [facility] ? [address] ?[place] [address] ? Patient: ?FILOMENA BORDEN ??Procedure: ? 03/08/2021 15:34 /Age/Sex: ??1990, 31 Y, F ? Received: ?03/09/2021 15:22 ?Accession #: ?? [id number] Billing: ?[id number] ?Patient Location: [facility] ?OFFICE Ordered by: ?? CHANEL CAVAZOS MD ? Attending: ? CHANEL CAVAZOS, ? [facility] CYTOLOGY FINAL REPORT SPECIMEN: (A) SURE PATH PAP, SCREEN SPECIMEN DESCRIPTION: Endocervical Received bloody specimen in SurePath via l. CLINICAL INFORMATION: LMP: 03/08/2021 ?? Prev.normal: 2018 SPECIMEN ADEQUACY: Unsatisfactory for Evaluation. ??Specime n is processed and examined, but unsatisfactory for evaluation of epithel ial abnormality due to: Scant cellularity. INTERPRETATION/RESULTS: PAP Test Disclaimer Cervical cytology is a screening test pr imarily for squamous cancer and its precursors and has associated false-nega tive and false-positive results. Regular sampling and follow-up of unexplained cl inical signs and symptoms are recommended to minimize the impact of false negative and false positive results. Screened By: LIBERTAD TEMPLETON(ASCP) Signed By: ALEJANDRA MARTINEZ MD <Sign Out Signature> Reported: ??03/15/2021 ? Page 1 of 1 Chanel Cavazos MD LAB CYTOLOGY ORDERABLES Performing Organization Address City/State/ZIP Code Phon e Number [facility] [address] [place] [address] documented in this encounter Visit Diagnoses Diagnosis Screening, lipid - Primary Screening for diabetes mellitus Screening for cervical cancer Screening for malignant neoplasm of the cervix Preventative health care Routine general medical examination at a health care facility Encounter for surveillance of contracept maximilian pills documented in this encounter Care Teams Analytical Technician Relationship Specialty Start Date End Date Chanel Cavazos MD PCP - General Family Medicine 01/28/[address] [place] [phone] documented as of this encounter
--- OUTSIDE RECORDS SUMMARY | 2021-12-29 10:16 | XMS_ITS | Clinical Summary ---
:1990 Author Organization [facility] Address [address] [place] [address] Care Team Providers Name Role Phone Shreya Mccurdy MD Primary Care Provider [phone] Allergies Active Allergy Reactions Severity Noted Date Comments Amoxicillin Rash Medium Medications Medication Sig Dispensed Refills Start Date End Date Status levonorgestrel-ethinyl Take 1 tablet by 84 tablet 3 03/08/2021 Active estradiol (NORDETTE) mouth 1 (one) 0.15-30 MG-MCG per time each day tabletIndications: Encounter for surveillance of contraceptive pills Active Problems Problem Noted Date Preventative health care 03/07/2021 Last Assessment & Plan: Formatting of is note might be different from the original. {Breast cancer screening: not yet indica nayely {Cervical cancer screening: co-testing d ue today. Negative pap 2018. No history of prior abnormal paps.Has had annual paps but records do not remain in her chart; if normal 2021 co-testing then DO NOT REPEAT for 5 years. {HIV Screening: {Lipid screening: Due today for family h istory, elevated BMI {Statin use: not indicated {Labs: screen for DM with fasting glucos e, elevated BMI risk factor Immunizations Name Administration Dates Next Due Influenza 6mo-49yrs Quad Preservative 12/29/2020, 03/01/2020 , 02/24/2019, Free IM 02/07/2018, 02/06/2017 Tdap 03/01/2020 Family History Medical History Relation Comments Crohn's disease Brother No Known Problems Father No Known Problems Father's Sister Hyperlipidemia Maternal Grandfather Thyroid cancer Maternal Grandmother Hyperlipidemia Mother No Known Problems Mother's Sister Other Paternal Grandfather Breast cancer Paternal Grandmother in her 70's Macular degeneration Paternal Grandmother Relation Status Comments Brother Alive Father Alive Father's Sister Alive Maternal Grandfather Maternal Grandmother Mother Alive Mother's Sister Alive Paternal Grandfather Progressive Supranu clear Palsy Paternal Grandmother Alive Social History Tobacco Use Types Packs/Day Years [...] at Date Recorded Female 02/25/2019 2:21 PM DIRECTOR CLINICAL APPLICATIONS Last Filed Vital Signs Vital Sign Reading Time Taken Comments Blood Pressure 118/76 03/08/2021 3:15 PM DIRECTOR CLINICAL APPLICATIONS Pulse 71 03/08/2021 3:15 PM DIRECTOR CLINICAL APPLICATIONS Temperature 36.3 ??C (97.3 ??F) 03/08/2021 3:15 PM DIRECTOR CLINICAL APPLICATIONS Respiratory Rate 20 03/08/2021 3:15 PM DIRECTOR CLINICAL APPLICATIONS Oxygen Saturation 98% 03/08/2021 3:15 PM DIRECTOR CLINICAL APPLICATIONS Inhaled Oxygen Concentration - - Weight 68.8 kg (151 lb 11.2 oz) 03/08/2021 3:15 PM DIRECTOR CLINICAL APPLICATIONS Height 165 cm (5' 4.96) 03/08/2021 3:15 PM DIRECTOR CLINICAL APPLICATIONS Body Mass Index 25.27 03/08/2021 3:15 PM DIRECTOR CLINICAL APPLICATIONS Plan of Treatment Health Maintenance Due Date Last Done Comments Pap Smear 03/08/2024 03/08/2021, 02/07/2018 COVID-19 Vaccine Completed 12/29/2020, 05/13/2020, 04/15/2020 HPV Vaccines Aged Out No longer eligib le based on patient's age to complete this to pic Pneumococcal Vaccine: Aged Out No longer eligible based Pediatrics (0 to 5 Years) and on patient's age to At-Risk Patients (6 to 64 comple te this topic Years) Insurance Payer Benefit Plan / Subscriber ID Effective Dates Phone Addre ss Type Group BCBS OF BCBS OF [id number] 2017[place] [address] [place] [address] Care Teams Web Marketing Manager Relationship Specialty Start Date End Date Shreya Mccurdy MD PCP - General Family Medicine 01/28/[address] [place] [address] [phone]
--- OUTSIDE RECORDS SUMMARY | 2021-12-29 10:17 | XMS_ITS | Encounter Summary ---
:1990 Author Organization [facility] Address [address] [place] [address] Care Team Providers Name Role Phone Faith Alvarez PA-C Primary Care Provider Unavailable Reason for Visit Reason Onset Date Comments RX request 01/14/2019 Encounter Details Date Type Department Care Team Description 01/14/2019 Telephone [place] Faith Alvarez PA-C RX request 111 [facility] [address] [place], [place] [address] Social History Tobacco Use Types Packs/Day Years Used Date Never Smoker Alcohol Use Standard Drinks/Week Comments Yes 0 (1 standard drink = 0.6 oz pure alcoho l) Alcohol Habits Answer Date Recorded How often do you have a drink containing alcohol? 2-4 times a month 03/01/2020 How many drinks containing alcohol do you have on a Not aske d typical day when you are drinking? How often do you have six or more drinks on one Not asked occasion? Comment: Not asked Physical Activity Answer Date Recorded On average, [...] at Date Recorded Female 02/25/2019 2:21 PM VETERINARY SCIENCE TEACHER documented as of this encounter Miscellaneous Notes Telephone Encounter - Faith Alvarez PA-C - 01/14/2019 3:03 PM CST Refilled. RINARY SCIENCE TEACHER Telephone Encounter - Alena Schwarz RN - 01/14/2019 12:12 PM CST Forwarded to Faith Alvarez RINARY SCIENCE TEACHER Telephone Encounter - Micaela Kaiser - 01/14/2019 11:48 AM CST Patient needs her BC refilled until her physical in Feb 2019, with Sabrina[employer] in [place] please RINARY SCIENCE TEACHER documented in this encounter Plan of Treatment Not on filedocumented as of this encounter Visit Diagnoses Diagnosis Encounter for surveillance of contracept maximilian pills documented in this encounter Care Teams Thumb Sewer Relationship Specialty Start Date End Date Faith Alvarez PA-C PCP - General Family Medicine 12/13/1804/19 documented as of this encounter
--- OUTSIDE RECORDS SUMMARY | 2021-12-29 10:17 | XMS_ITS | Clinical Summary ---
:1990 Author Organization [facility] Address [address] [place] [address] Care Team Providers Name Role Phone Elsewhere, Pcp Primary Care Provider Unavailable Source Comments Patient records contain information from all sites at [facility]. For routine questions regarding patient records, call [phone] during business hours, M-F 8:00 AM - 5:00 PM Central Time. Record requests for emergency care only can be directed to [phone] at any time.[facility] Allergies Active Allergy Reactions Severity Noted Date Comments Amoxicillin Other (see comments) 12/15/2020 Medications Medication Sig Dispensed Refills Start Date End Date Status norethindrone Take 1 tablet 0 Ac tive acetate-ethinyl estradiol by mouth daily. (FEMHRT LOW DOSE) 0.5 mg-2.5 mcg per tablet cyclobenzaprine Take 1 tablet 15 tablet 0 12/15/2020 Active (FLEXERIL) 10 mg tablet (10 mg total) by mouth 3 (three) times a day as needed for muscle spasms. Active Problems No known active problems Social History Tobacco Use Types Packs/Day Years Used Date Smoking Tobacco: Never Smokeless Tobacco: Never Sex Assigned at Date Recorded Not on file Last Filed Vital Signs Vital Sign Reading Time Taken Comments Blood Pressure 124/90 12/15/2020 4:59 PM CDT Pulse 61 12/15/2020 4:59 PM CDT Temperature 36.8 ??C (98.2 ??F) 12/15/2020 4:59 PM CDT Respiratory Rate 16 12/15/2020 4:59 PM CDT Oxygen Saturation 99% 12/15/2020 4:59 PM CDT Inhaled Oxygen Concentration - - Weight 67.4 kg (148 lb 9.4 oz) 12/15/2020 4:55 PM CDT Height - - Body Mass Index - - Plan of Treatment Not on file Insurance Payer Benefit Plan / Subscriber ID Effective Phone Address T ype Group Dates STATE [facility] [id number] 2020-Pre [phone] [address] demnity AUTO sent [phone] [place] [address] [facility] [id number] 2017-Prese [phone] [address] [facility] [id number] [facility] [id number] Care Teams A Auxiliary Relationship Specialty Start Date End Date Elsewhere, Pcp PCP - General Family Medicine 12/15/20
--- OUTSIDE RECORDS SUMMARY | 2021-12-29 10:17 | XMS_ITS | Encounter Summary ---
:1990 Author Organization [facility] Address [address] [place] [address] Care Team Providers Name Role Phone Shreya Mccurdy MD Primary Care Provider [phone] Reason for Visit Reason Comments Med Refill Encounter Details Date Type Department Care Team Description 12/30/2017 Refill Calvin Carin Douglass, Encounter for [address] [place] [address] [address] DNP, FIT MODEL, BARN WORKER surveillance of [place], [place] [address] contraceptive pills [phone] [place] (Primary Dx) [id number] Social History Tobacco Use Types Packs/Day Years Used Date Never Assessed Alcohol Habits Answer Date Recorded How often [...] exercise at is 60 min 02/24/2019 level? Sex Assigned at Date Recorded Female 02/25/2019 2:21 PM ALUMNAE SECRETARY documented as of this encounter Miscellaneous Notes Telephone Encounter - Ольга Espinoza MA - 01/04/2018 1:36 PM CST Patient notified Rx was sent to pharmacy and she must be seen for her annual exam prior to getting any further refills done. NAE SECRETARY Telephone Encounter - Faith Tyler LPN - 01/02/2018 8:47 AM CST Left a message for the patient to call us back. NAE SECRETARY Telephone Encounter - Annmarie Desai LPN - 01/01/2018 1:51 PM CST Last Rx Alicia (ethinyl estradiol-levonorgestrel) 30 mcg-0.15 mg tablet, oral, 1, Daily Last Prescribed: 02/06/2017 Prescriber: Carin Hernandez Pharmacy: [facility] Quantity: 3 Refills: 3 Chronic: N Last office visit 02/06/17 No upcoming appt scheduled NAE SECRETARY documented in this encounter Plan of Treatment Not on filedocumented as of this encounter Visit Diagnoses Diagnosis Encounter for surveillance of contracept maximilian pills - Primary documented in this encounter Care Teams Computer Education Professor Relationship Specialty Start Date End Date Shreya Mccurdy MD PCP - General Family Medicine 01/28/[address] [place] [address] [address] [place] [address] documented as of this encounter
--- OUTSIDE RECORDS SUMMARY | 2021-12-29 10:17 | XMS_ITS | Encounter Summary ---
:1990 Author Organization [facility] Address [address] [place] [address] Care Team Providers Name Role Phone Carin Douglass DNP, ASSISTANT TEACHING PROFESSOR, BRUSH MAKER Primary Care Provider [phone] Encounter Details Date Type Department Care Team Description 02/01/2018 Abstract SE Family Med Carin Douglass, DNP, [address] [facility] ASSISTANT TEACHING PROFESSOR, [place] [address] [address] [facility] [phone] [place], [place] [phone] Social History Tobacco Use Types Packs/Day Years [...] minutes do you engage in exercise at [facility] 60 min 02/24/2019 level? Education Answer Date Recorded What is the highest level of school Bachelor's degree (e.g., BA, AB, 02/01/2018 you have completed or the highest BS) degree you have received? Sex Assigned at Date Recorded Female 02/25/2019 2:21 PM FRONT DESK ASSOCIATE documented as of this encounter Plan of Treatment Not on filedocumented as of this encounter Visit Diagnoses Not on filedocumented in this encounter Care Teams Magnetic Tape Composer Operator Relationship Specialty Start Date End Date Carin Douglass, DNP, ASSISTANT TEACHING PROFESSOR, BRUSH MAKER PCP - General 09/25/17 12/12/18 documented as of this encounter
--- OUTSIDE RECORDS SUMMARY | 2021-12-29 10:17 | XMS_ITS | Encounter Summary ---
:1990 Author Organization [facility] Address [address] [place] [address] Care Team Providers Name Role Phone Faith Alvarez PA-C Primary Care Provider Unavailable Reason for Visit Reason Comments Annual Exam Encounter Details Date Type Department Care Team Description 02/24/2019 Office Visit [place] Faith Alvarez Well woman exam (Primary Dx) ; [address] [place] Encounter for surveillance o f contraceptive pills; [place], [place] [address] Bilateral impacted cerumen; [phone] Need for influe nza vaccination Social History Tobacco Use Types Packs/Day Years [...] at Date Recorded Female 02/25/2019 2:21 PM GEOTECHNICAL LABORATORY TECHNICIAN documented as of this encounter Last Filed Vital Signs Vital Sign Reading Time Taken Comments Blood Pressure 120/70 02/24/2019 3:45 PM GEOTECHNICAL LABORATORY TECHNICIAN Pulse 54 02/24/2019 3:45 PM GEOTECHNICAL LABORATORY TECHNICIAN Temperature 36.8 ??C (98.2 ??F) 02/24/2019 3:45 PM GEOTECHNICAL LABORATORY TECHNICIAN Respiratory Rate 12 02/24/2019 3:45 PM GEOTECHNICAL LABORATORY TECHNICIAN Oxygen Saturation 98% 02/24/2019 3:45 PM GEOTECHNICAL LABORATORY TECHNICIAN Inhaled Oxygen Concentration - - Weight 68.9 kg (151 lb 14.4 oz) 02/24/2019 3:45 PM GEOTECHNICAL LABORATORY TECHNICIAN Height 164.9 cm (5' 4.92) 02/24/2019 3:45 PM GEOTECHNICAL LABORATORY TECHNICIAN Body Mass Index 25.34 02/24/2019 3:45 PM GEOTECHNICAL LABORATORY TECHNICIAN documented in this encounter Patient Instructions Patient InstructionsSaseng Alvarez PA-C - 02/24/2019 4:00 PM CST Try to get 2-3 servings of dairy daily to promote bone health. Consider Debrox drops as needed for excessive cerumen. ECHNICAL LABORATORY TECHNICIAN documented in this encounter Progress Notes Faith Alvarez PA-C - 02/24/2019 4:00 PM CST Estab Patient Visit Subjective Patient ID: Anika Doan is a 28 y.o. female. Chief Complaint Patient presents with ??? Annual Exam HPI Patient is a otherwise healthy 28-year-old female presenting today for annual exam and for refill oforal contraceptive pills. She has no questions or concerns today. 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 She recently bought a home with her boyfriend and CR2. She and her boyfriend like to stay active by regularly going to [facility], weightlifting, doing yoga, cycling. She describes a healthy diet. However, she admits that her eating has been poor over the holidays. She has gained 6 lbs over the past year. She tracks her food on her [employer] jacquelin on her phone. She says that she does not try to restrict any feeding but recording what she eats helps her be more conscientious of what she is eating. She admits that she is drinking less milk since moving in with her boyfriend because he does not drink a lot of milk. 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 LMP 02/13/2019. Periods are regular. Denies irregular bleeding, vaginal discharge, sexual health concerns. Uses oral contraceptive pill for contraception. In a monogamous relationship with herboyfriend. No plans for at this time. Current Outpatient Medications: ??? levonorgestrel-ethinyl estradiol (ALTAVERA) 0.15-30 MG-MCG per tablet, Take 1 tablet by mouth 1 (one) time each day, Disp: 84 tablet, Rfl: 3 Allergies as of 02/24/2019 - Reviewed 02/24/2019 Allergen Reaction Noted ??? Amoxicillin Rash Past Medical History: Diagnosis Date ??? Known health problems: none Past Surgical History: Procedure Laterality Date ??? WISDOM TOOTH EXTRACTION 2013 Family History Problem Relation Age of Onset [...] ??? Financial resource strain: None ??? Food insecurity: Worry: None Inability: None ??? Transportation needs: Medical: None Non-medical: None Tobacco Use ??? Smoking status: Never Smoker ??? Smokeless tobacco: Never Used Substance and Sexual Activity ??? Alcohol use: Yes Alcohol/week: 1.0 standard drinks Types: 1 Cans of beer per week Frequency: 2-4 times a month Comment: occasional ??? Drug use: No ??? Sexual activity: Yes Partners: Male control/protection: OCP Lifestyle ??? Physical activity: Days per week: 5 days Minutes per session: 60 min ??? Stress: None Relationships ??? Social connections: Talks on phone: None Gets together: None Attends quaker service: None Active member of club or organization: None Attends meetings of clubs or organizations: None Relationship status: None ??? Intimate partner violence: Fear of current or ex partner: None Emotionally abused: None Physically abused: None Forced sexual activity: None Other Topics Concern ??? None Social History Narrative Enjoys weightlifting, yoga, and cycling for physical activity. Review of Systems HENT: Positive for hearing loss (has noticed that either her students are mumbling more or her hearing is decreased) and tinnitus (ears were ringing for awhile last month, now resolved). Neurological: Negative for dizziness, light-headedness and headaches. Denies history of migraines. Hematological: Does not bruise/bleed easily. Denies history of blood clots or bleeding disorders. All other systems reviewed and are negative. Immunization History Administered Date(s) Administered ??? Influenza 6mo-49yrs Quad Preservative Free IM 02/06/2017, 02/07/2018, 02/24/2019 Objective Visit Vitals BP 120/70 (BP Location: Right arm, Patient Position: Sitting) Pulse 54 Temp 36.8 ??C (98.2 ??F) (Temporal) Resp 12 Ht 1.649 m (5' 4.92) Wt 68.9 kg (151 lb 14.4 oz) SpO2 98% BMI 25.34 kg/m?? Smoking Status Never Smoker BSA 1.78 m?? Physical Exam Vitals signs reviewed. Constitutional: Appearance: Normal appearance. She is well-developed and normal weight. HENT: Head: Normocephalic and atraumatic. Right Ear: Tympanic membrane, ear canal and external ear normal. There is impacted cerumen. Left Ear: Tympanic membrane, ear canal and external ear normal. There is impacted cerumen. Nose: Nose normal. Mouth/Throat: Mouth: Mucous membranes are moist. Pharynx: Oropharynx is clear. Eyes: Conjunctiva/sclera: Conjunctivae normal. Pupils: Pupils are equal, round, and reactive to light. Neck: Musculoskeletal: Normal range of motion and neck supple. Thyroid: No thyromegaly. Vascular: No carotid bruit. Cardiovascular: Rate and Rhythm: Normal rate and regular rhythm. Heart sounds: Normal heart sounds. Pulmonary: Effort: Pulmonary effort is normal. Breath sounds: Normal breath sounds. Abdominal: General: Bowel sounds are normal. Palpations: Abdomen is soft. Tenderness: There is no abdominal tenderness. Lymphadenopathy: Cervical: No cervical adenopathy. Skin: General: Skin is warm and dry. Capillary Refill: Capillary refill takes less than 2 seconds. Findings: Erythema: Neurological: Mental Status: She is alert. Deep Tendon Reflexes: Reflexes normal. Psychiatric: Behavior: Behavior normal. Assessment/Plan Diagnoses and all orders for this visit: Well woman exam Encounter for surveillance of contraceptive pills - levonorgestrel-ethinyl estradiol (ALTAVERA) 0.15-30 MG-MCG per tablet; Take 1 tablet by mouth 1 (one) time each day Bilateral impacted cerumen - Ear cerumen removal; Future Need for influenza vaccination - Flu Vaccine 6mo-49yrs Quad Preservative Free IM Immunizations due: flu vaccine today, otherwise up to date Mammogram: no early risk factors, discussed self breast exams Pap exam: done last year, due in 2020 PHQ-9: 0 STD Screening: Pt declines Encouraged patient to continue her healthy diet and regular exercise. She has gained 6 pounds in thelast year. We discussed the importance of monitoring her weight. Physical examination revealed bilateral cerumen impaction. Recommended 2-3 servings of dairy daily to promote bone health. Easily cleared with lavage today in clinic. Patient reported improved hearing after lavage. Oral contraceptive pills were refilled for 1 year. Follow-up in 1 year or sooner if concerns. Questions answered, patient verbalized understanding and is in agreement with plan. This dictation was created using voice recognition software and therefore may contain errors that went unnoticed. Faith Alvarez PA-C ECHNICAL LABORATORY TECHNICIAN documented in this encounter Plan of Treatment Not on filedocumented as of this encounter Visit Diagnoses Diagnosis Well woman exam - Primary Routine general medical examination at a health care facility Encounter for surveillance of contracept maximilian pills Bilateral impacted cerumen Impacted cerumen Need for influenza vaccination Need for prophylactic vaccination and in oculation against influenza documented in this encounter Care Teams Home Care Chaplain Relationship Specialty Start Date End Date Faith Alvarez PA-C PCP - General Family Medicine 12/13/1804/19 documented as of this encounter
--- OUTSIDE RECORDS SUMMARY | 2021-12-29 10:17 | XMS_ITS | Encounter Summary ---
:1990 Author Organization [facility] Address [address] [place] [address] Care Team Providers Name Role Phone Silvestre Douglass DNP, HAND TACKER, CHANGE MANAGEMENT LEAD Primary Care Provider [phone] Reason for Visit Reason Comments Annual Exam Encounter Details Date Type Department Care Team Description 02/07/2018 Office Visit [place] Silvestre Douglass, Annual physical exam (Primar y Dx); [address] [place] [address] [address] DNP, HAND TACKER, CHANGE MANAGEMENT LEAD Encounter for surveillance of contracept maximilian pills; [place], [place] [address] [address] [facility] Cervical cancer screening [phone] [place] [address] Social History Tobacco Use Types Packs/Day [...] at Date Recorded Female 02/25/2019 2:21 PM BLACKTOP PAVER OPERATOR documented as of this encounter Last Filed Vital Signs Vital Sign Reading Time Taken Comments Blood Pressure 100/70 02/07/2018 3:38 PM BLACKTOP PAVER OPERATOR Pulse 62 02/07/2018 3:38 PM BLACKTOP PAVER OPERATOR Temperature 36.6 ??C (97.8 ??F) 02/07/2018 3:38 PM BLACKTOP PAVER OPERATOR Respiratory Rate 16 02/07/2018 3:38 PM BLACKTOP PAVER OPERATOR Oxygen Saturation 98% 02/07/2018 3:38 PM BLACKTOP PAVER OPERATOR Inhaled Oxygen Concentration - - Weight 65.9 kg (145 lb 3.2 oz) 02/07/2018 3:38 PM BLACKTOP PAVER OPERATOR Height 164 cm (5' 4.57) 02/07/2018 3:38 PM BLACKTOP PAVER OPERATOR Body Mass Index 24.49 02/07/2018 3:38 PM BLACKTOP PAVER OPERATOR documented in this encounter Progress Notes Silvestre Castorena, DNP, HAND TACKER, CHANGE MANAGEMENT LEAD - 02/07/2018 4:00 PM CST Subjective Patient ID: Filomena Doan is a 27 y.o. female. Chief Complaint Patient presents with ??? Annual Exam HPI Filomena comes into the clinic today for her annual physical exam. No significant past medical history.Nulligravida. She denies any current concerns. She has been trying to eat healthy and exercise regularly. She has lost weight since her last exam. She denies any concerns with her mood. She is in a monogamous relationship for the last 4 years. Her periods are regular on OCP. She is happy with the OCP treatment. She denies any concerns for STDs or abuse. She denies any smoking history, abuse of alcohol, or recreational drug use. She does have a family history of hyperlipidemia but believes that that both her mother and grandfather were diagnosed later in life. She denies any family history of diabetes. The following portions of the patient's chart were reviewed in this encounter and updated as appropriate: Allergies Meds Problems Med Hx Surg Hx Fam Hx Review of Systems Constitutional: Negative. HENT: Negative for ear pain and trouble swallowing. Eyes: Negative for pain and visual disturbance. Respiratory: Negative for cough, chest tightness and shortness of breath. Cardiovascular: Negative for chest pain, palpitations and leg swelling. Gastrointestinal: Negative for abdominal pain, blood in stool, constipation and diarrhea. Endocrine: Negative for cold intolerance, polydipsia and polyuria. Genitourinary: Negative for dysuria, pelvic pain, vaginal discharge and vaginal pain. Musculoskeletal: Negative for arthralgias and myalgias. Skin: Negative for rash and wound. Neurological: Negative for seizures and headaches. Psychiatric/Behavioral: Negative for behavioral problems and dysphoric mood. The patient is not nervous/anxious. Objective Physical Exam Constitutional: She appears well-developed and well-nourished. HENT: Head: Normocephalic. Right Ear: External ear normal. Left Ear: External ear normal. Nose: Nose normal. Mouth/Throat: Oropharynx is clear and moist. Eyes: Conjunctivae are normal. Pupils are equal, round, and reactive to light. Neck: Normal range of motion. No thyromegaly present. Cardiovascular: Normal rate, regular rhythm and normal heart sounds. No murmur heard. Pulmonary/Chest: Effort normal and breath sounds normal. Abdominal: Soft. Bowel sounds are normal. She exhibits no mass. There is no tenderness. There is no rebound and no guarding. Genitourinary: Vagina normal and uterus normal. Pelvic exam was performed with patient supine. Thereis no rash, tenderness or lesion on the right labia. There is no rash, tenderness or lesion on the left labia. Cervix exhibits no motion tenderness and no friability. Right adnexum displays no mass andno tenderness. Left adnexum displays no mass and no tenderness. No vaginal discharge found. Genitourinary Comments: Patient declined life skills coordinator volunteer for vaginal exam. Musculoskeletal: Normal range of motion. She exhibits no edema. Lymphadenopathy: She has no cervical adenopathy. Neurological: She is alert. No sensory deficit. Coordination normal. Skin: Skin is warm and dry. No rash noted. Psychiatric: She has a normal mood and affect. Her behavior is normal. Vitals: 02/07/18 1538 BP: 100/70 Pulse: 62 Resp: 16 Temp: 36.6 ??C (97.8 ??F) SpO2: 98% Assessment/Plan Diagnoses and all orders for this visit: Annual physical exam Encounter for surveillance of contraceptive pills - levonorgestrel-ethinyl estradiol (ALTAVERA) 0.15-30 MG-MCG per tablet; Take 1 tablet by mouth 1 (one) time each day - Influenza Quadrivelant greater than or equal to 3yr Preservative Free IM Cervical cancer screening - Pap smear Pap smear: Done today Immunizations: flu today STD screening: Declined Do not smoke. Limit alcohol to 1 serving per day. Exercise at least 5 days per week for 30 minutes at a time. Wear your seatbelt. Apply sunscreen to exposed skin, SPF 15 when outside. She will do a lipid screening next year due to family history of hyperlipidemia. Questions answered, patient verbalizes understanding and is in agreement with the plan of care. Electronically signed by Silvestre Castorena, DNP, HAND TACKER, CHANGE MANAGEMENT LEAD at 02/07/2018 4:34 PM BLACKTOP PAVER OPERATOR documented in this encounter Plan of Treatment Not on filedocumented as of this encounter Procedures Procedure Name Priority Date/Time Associated Diagnosis Comme nts PAP TEST Routine 02/07/2018 3:59 PM Cervical cancer Result s for this BLACKTOP PAVER OPERATOR screening procedure are i n the results section . documented in this encounter Results Pap smear (02/07/2018 3:59 PM BLACKTOP PAVER OPERATOR) Specimen Anatomical Collection Method Collection Time Receive d Time (Source) Location / / Volume Laterality Sure Path PAP 02/07/2018 3:59 PM 02/09/20 18 1:37 screen with HPV BLACKTOP PAVER OPERATOR PM BLACKTOP PAVER OPERATOR reflex Narrative [facility] - 01/20 8:30 AM BLACKTOP PAVER OPERATOR ? [facility] ? [address] ?[place] [address] ? Patient: ?FILOMENA DOAN ? Procedure: ? 02/07/2018 15:59 /Age/Sex: ??1990, 27 Y, F ? Received: ?02/08/2018 13:37 ?Accession #: ?? [id number] Billing: ?[id number] ?Patient Location: [facility] ?OFFICE Ordered by: ?? SILVESTRE CASTORENA, PEDRO, HAND TACKER, CHANGE MANAGEMENT LEAD ?Attending: ? SILVESTRE CASTORENA DNP, ? HAND TACKER, CHANGE MANAGEMENT LEAD ? NEUROLOGY DIRECTOR CYTOLOGY FINAL REPORT SPECIMEN: (A) SURE PATH PAP SCREEN WITH HPV REFLEX SPECIMEN DESCRIPTION: Endocervical Received cloudy specimen in [facility] via l. CLINICAL INFORMATION: LMP: 01/17/2018 ?? Hormonal TX: Levo-eth inyl ??SPECIMEN ADEQUACY: Satisfactory for Evaluation. ??Endocervi elliott cells/transformation zone component present. GENERAL CATEGORIZATION: Negative for Intraepithelial Lesion or M alignancy PAP Test Disclaimer Cervical cytology is a screening test pr imarily for squamous cancer and its precursors and has associated false-nega tive and false-positive results. Regular sampling and follow-up of unexplained cl inical signs and symptoms are recommended to minimize the impact of false negative and false positive results. Screened By: Signed By: LIBERTAD TEMPLETON(ASCP) <Sign Out Dr. Watson> Reported: ??02/14/2018 ? Page 1 of 1 Silvestre Douglass DNP, HAND TACKER, CHANGE MANAGEMENT LEAD LAB CYTOLOGY ORDERABLES Performing Organization Address City/State/ZIP Code Phon e Number [facility] [address] [place] [address] documented in this encounter Visit Diagnoses Diagnosis Annual physical exam - Primary Routine general medical examination at a health care facility Encounter for surveillance of contracept maximilian pills Cervical cancer screening Screening for malignant neoplasm of the cervix documented in this encounter Care Teams Enamel Pulverizer Relationship Specialty Start Date End Date Silvestre Douglass DNP, HAND TACKER, CHANGE MANAGEMENT LEAD PCP - General 09/25/17 12/12/18 documented as of this encounter
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
--- OUTSIDE RECORDS SUMMARY | 2021-12-29 10:17 | XMS_ITS | Encounter Summary ---
:1990 Author Organization [facility] Address [address] [place] [address] Care Team Providers Name Role Phone Carin Douglass DNP, QUALITY SYSTEMS ENGINEER, [employer]PER [employer] Primary Care Provider [phone] Reason for Visit Reason Onset Date Comments previsit 01/04/2018 pt coming 04/08 previ sit labs and cp on the 02/07 Encounter Details Date Type Department Care Team Description 01/04/2018 Telephone [place] Carin Douglass, previsit (pt coming [address] [facility] [address] DNP, QUALITY SYSTEMS ENGINEER, [employer]AGE 04/08 previsit labs and [place], [place] [address] cp on the 02/07) [phone] [place] [address] Social History Tobacco Use Types [...] at th is 60 min 02/24/2019 level? 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 EYOR SYSTEM OPERATOR Telephone Encounter - Glory Aguayo LPN - 01/09/2018 12:56 PM CST Left detailed message on identified voicemail for pt to call back if she wants to do those labs before her visit or else to come fasting to her appointment and do appropriate blood work at that time EYOR SYSTEM OPERATOR Telephone Encounter - Carin Hernandez DNP, APRN, CNP - 01/09/2018 9:16 AM CONVEYOR SYSTEM OPERATOR I do not see a blood sugar or cholesterol test done for her in the past. If she would like to get these done before the appointment I will order them. Otherwise we can talk about it at the appointment and she should come to the appointment fasting if possible. EYOR SYSTEM OPERATOR documented in this encounter Plan of Treatment Not on filedocumented as of this encounter Visit Diagnoses Not on filedocumented in this encounter Care Teams Commercial Tire Service Technician Relationship Specialty Start Date End Date Carin Douglass DNP, BRYANT, [employer] PCP - General 09/25/17 12/12/18 documented as of this encounter
[2021-12-29 12:06] LABS: Hepatitis B Surface Antigen* Negative (Negative)
[2021-12-29 13:10] LABS: Hepatitis C Virus Antibody* Negative (Negative)
[2021-12-29 15:51] LABS: Chlamydia DNA Amplified* NOT DETECTED (No Detected); GC DNA Amplified* NOT DETECTED (No Detected)
[2021-12-29 16:39] LABS: HIV 1/2/P24 Combo Screen* Negative (Negative)
[2021-12-30 15:37] LABS: Rapid Plasma Reagin (RPR) Non Reactive (Non Reactive)
[2021-12-30 17:25] LABS: Varicella-Zoster Virus Ab, IgG 117.9 IV
[2021-12-30 17:30] LABS: Rubella Antibody IgG 20.9 IU/mL
== END 2021-12-29 10:14 | disposition home or self-care (01) ==
PROVIDERS: Visit Provider Advanced Practice Midwife
DX: Z34.91 Encounter for supervision of normal pregnancy, unspecified, first trimester (principal); Z3A.08 8 weeks gestation of pregnancy
CPT/HCPCS: 86592; 86703; 86762; 86787; 86803; 86850; 86900; 86901; 87086; 87340; 87491; 87591

== ENCOUNTER 2022-03-28 13:59 | Outpatient (CLI) | payer BC, SELFPAY ==
--- NOTE | 2022-03-28 14:00 | CRLHL7_ITS ---
For Patients: As a result of the Century Cures Act, medical imaging exams and procedure reports are released immediately into your electronic medical record. You may view this report before your referring provider. If you have questions, please contact your health care provider. INDICATION: Evaluate anatomy. COMPARISON: 12/29/2021 TECHNIQUE: Real time paez scale imaging of the fetus was performed as well as color Doppler analysis of the umbilical vessels. FINDINGS: Sonographic imaging demonstrates a single living intrauterine gestation. Fetus demonstrates a regular cardiac rate of 154 beats per minute. Fetus has a breech position. The placenta lies anteriorly without evidence of placenta previa. The edge of the placenta is located 9.5 cm from the internal cervical os. Amniotic fluid volume appears normal. Single deepest vertical pocket: 3.4 cm. The cervix is closed and measures 3.1 cm in length. The composite ultrasound gestational age is calculated at 19 weeks 5 days with an estimated sonographic due date of 08/17/2022. The estimated weight is 319 grams which lies at the 86th %. The following biometric measurements were obtained: Biparietal diameter: 4.4 cm/19 weeks 1 day 51st% Head circumference: 16.8 cm/19 weeks 3 days 59th% Abdominal circumference: 15.2 cm/20 weeks 3 days 84% Femur length: 3.1 cm/19 weeks 3 days 55th% The HC/AC ratio measures: 1.11 range (1.08-1.26) On anatomic survey, there is a normal appearance of the cerebral ventricles, cavum septi pellucidi, cisterna magna and cerebellum. The nose, lips, and facial profile appear normal. The cervical, thoracic and lumbar spine are well visualized and appear normal. There is a normal four-chamber heart view and the left and right ventricular outflow tracts appear normal. The diaphragm and stomach appear normal. The kidneys and bladder also appear normal. There is a normal three-vessel cord. Marginal cord insertion site 1.2 cm from the placental edge. The four extremities appear normal. IMPRESSION: Concordance of clinical and sonographic dating. No intrinsic abnormalities noted on anatomic survey. Marginal cord insertion 1.2 cm from the placental edge. Area decreased echogenicity within the placenta adjacent to the cord insertion may be a placental venous baptiste or chorioangioma. Follow-up in 6-8 weeks recommended. Dictated by Link Mancilla MD @ 03/29/2022 12:33:58 PM (Electronically Signed)
== END 2022-03-28 14:00 | disposition home or self-care (01) ==
LOC: US 14:00
PROVIDERS: PCP Advanced Practice Midwife; Visit Provider Advanced Practice Midwife
DX: Z34.92 Encounter for supervision of normal pregnancy, unspecified, second trimester (principal); Z3A.19 19 weeks gestation of pregnancy
CPT/HCPCS: 76805

== ENCOUNTER 2022-05-29 13:54 | Outpatient (CLI) | payer BC, SELFPAY ==
--- NOTE | 2022-05-29 14:00 | CRLHL7_ITS ---
For Patients: As a result of the Century Cures Act, medical imaging exams and procedure reports are released immediately into your electronic medical record. You may view this report before your referring provider. If you have questions, please contact your health care provider. INDICATION: GROWTH US FOR HX COVID IN AND MARGINAL CORD COMPARISON: 03/28/2022 TECHNIQUE: Real time paez scale imaging of the fetus was performed. FINDINGS: Sonographic imaging demonstrates a single living intrauterine gestation. Fetus demonstrates a regular cardiac rate of 159 beats per minute. Fetus has a vertex position. The placenta lies anteriorly. Amniotic fluid volume appears normal and there is a single deepest vertical pocket: 3.6 cm. The estimated weight is 1430gm which lies at the 92nd %. On the prior OB ultrasound exam dated 03/28/2022 the estimated weight was at the 86th%. BPD 83rd percentile. HC 73rd percentile. AC 91st percentile. FL 71st percentile. The HC/AC ratio measures 1.06 range (0.98-1.20). IMPRESSION: Sonographic gestational age 29 weeks 4 days and sonographic due date 08/10/2022. Sonographic age 11 days ahead of the clinical age. Estimated weight 92nd percentile. Abdominal circumference 91st percentile. Dictated by Link Mancilla MD @ 05/30/2022 10:24:29 AM (Electronically Signed)
== END 2022-05-29 13:55 | disposition home or self-care (01) ==
LOC: US 13:55
PROVIDERS: PCP Advanced Practice Midwife; Visit Provider Advanced Practice Midwife
DX: O98.513 Other viral diseases complicating pregnancy, third trimester (principal); U07.1 COVID-19; Z3A.29 29 weeks gestation of pregnancy
CPT/HCPCS: 76816; 86592

== ENCOUNTER 2022-06-07 08:26 | Outpatient (CLI) | payer BC, SELFPAY | END 2022-06-07 08:27 | disposition home or self-care (01) | LOC: NFLDREF 06-09 01:12 | PROVIDERS: PCP Advanced Practice Midwife; Referring Provider Advanced Practice Midwife; Visit Provider Advanced Practice Midwife | DX: R73.09 Other abnormal glucose (principal) | CPT/HCPCS: 82951; 82952 ==

== ENCOUNTER 2022-08-27 04:49 | Inpatient (IN) | payer BC, SELFPAY ==
[2022-08-27] VITALS (16 sets, daily range): BP systolic 118–158; BP diastolic 64–100; PULSE 72–105; RESP 16–18; TEMP 36.4–36.6; O2SAT 98–99; BMI 30.7
[2022-08-27] MEDS: LACTATED RINGERS 1000 ML 1,000 ML 125 ML IV (05:41)
[2022-08-27] MEDS: CEFAZOLIN 2 GM in 0.9 % SODIUM CHLORIDE Mini-bag 100 ML IVPB (05:41)
--- NOTE | 2022-08-27 10:02 | W.PM.LDBA ---
Subjective History of Present Illness Date Seen: 08/27/22 Narrative: Patient is being admitted to Labor and Delivery for active labor at term. She is a 32 year old at 40.6 weeks gestation. Her full history and physical was dictated by Estela Chavez CNM on 08/01/22. Please see this for details. Anika has been maurice on and off since Sunday. She was awoken by contractions at 0215 this morning and continued to contract. On admission she was found to be 5mc/70%/0 by RN exam. She has continued to labor changing positions frequently. She is coping well with contractions and has had some bloody show recently. She denies leaking fluid. 1.Covid in at 16.5 weeks (03/11/22). Growth at 32 (doing at 28 weeks instead): 92%ile Growth at 35 weeks: 91% 2. Marginal Cord Insertion, 1.2 cm Growth at 28-32w: (at 28 weeks): 92%ile; cord not noted on report 3. Area decreased echogenicity noted on FAS; placenta baptiste vs chorioangioma (not measured) RESOLVED Consulted w/ MD WIL Follow-up in 6-8 weeks (at 28 weeks): 92%ile, no concerns on US 05/29 4. Failed 1 hr gct, 143 3 hour passed 5. Measuring small for dates at 34 wks -Growth u/s changed from 36 to within the next week. 07/13/22 EFW 91st percentile. AC <97th percentile. 6. GBS Positive. Needs antibiotics in labor. Resistant to Clindamycin, Agrees with Cefazolin 2g initial, 1g q 8 hours OB - Problem Based A/P Additional Plan (1) Pain during labor: Status: Acute (2) Post term over 40 weeks: Status: Acute Plan ASSESSMENT:? at 40.6 weeks gestation? GBS positive? Uncomplicated ? ?? PLAN:? 1. Antibiotic prophylaxis treatment per protocol with Cefazolin due to amoxicillin allergy. 2. Candidate for analgesia of choice. Planning unmedicated .? 3. Anticipate ? 4. Expectant management at this time.? 5. IV in place for GBS prophylaxis. 6. Intermittent auscultation after reactive NST per unit policy.? Delivery/Labor/Induction Plan Plan: expectant management OB Result Labs Blood Type: O (+) positive GBS Status: positive OB Exam Physical Exam Vital signs: Temp Pulse Resp BP Pulse Ox 97.5 F L 89 18 134/78 99 08/27/22 08:01 08/27/22 08:01 08/27/22 08:01 08/27/22 08:01 08/27/22 09:36 Narrative: Psychiatric:? Alert and oriented x3? HEENT:? Normocephalic, atraumatic? Neck:? Supple without adenopathy or thyromegaly? Lungs:? Clear to auscultation bilaterally? Heart:? Regular rate and rhythm, no murmur, rub or gallop? Abdomen:? Soft, nontender, and gravid? Extremities:? No edema or erythema Detailed Labor and Delivery Exam Patient Gravid: Yes Dilation (cm): 5 (per RN exam on admission) Effacement (%): 70 Contraction intensity: Moderate Fetus (Single) Station: 0 Amniotic Membrane Status: intact Heart Rate Baseline: 125 (per doppler auscultation )
[2022-08-27] MEDS: OXYTOCIN 30 unit/500 ML in NS 30 UNIT/500 ML BAG 300 UNIT IVPB (12:09)
[2022-08-27] MEDS: miSOPROStoL 800 MCG/4 TABLET PR (12:30)
[2022-08-27] MEDS: LIDOCAINE 1 % PF 30 ML INJECTION (12:50)
--- NOTE | 2022-08-27 13:55 | W.PM.OBVAGDE ---
OB Procedure Vag Delivery Mother Details Mother Details: The patient is a 32 year-old, 1, now Para 1, admitted on 08/27/22 at 40.6 Days gestation for active labor.? Cervical exam on admission was [] cm/[] % effaced/[] station with membranes intact/ruptured in vertex presentation.? Contractions were every 2-5 minutes.? heart rate demonstrated baseline 130 bpm with moderate variability, + accelerations, - decelerations; a category 1 tracing.? SROM occurred at 1109 with clear fluid.? : 1 Para: 1 Weeks Gestation: 40.6 Admission Date: 08/27/22 Additional Details Amniotic Membrane Status: SROM Amniotic Membrane Rupture Date: 08/27/22 Amniotic Membrane Rupture Time: 11:09 Amniotic Membrane Fluid Description: Clear Analgesia/Anesthesia Type: None Waterbirth: No Pitcoin: Yes ( only) Intrapartal Events: None Labor Onset: 05:15 Complete: 11:30 Pushin:30 Heart: heart tones during second stage were dopplered in the 130's with increases heard to the 140-150's and one decrease was heard to the 90's. Difficult to hear FHT at the end of pushing due to position and maternal position while pushing. Delivery Details Delivery Date: 08/27/22 Delivery Time: 12:07 Route of delivery: Gender: Male Viability: Alive; Heart Rate Present Position at Delivery: OA Delivery Details: At 1207 a viable male infant delivered in vertex DIEGO presentation over intact perineum via spontaneous vaginal delivery in hands an knees position.? was placed on maternal abdomen.? Cord was clamped and cut after a >5 minute delay.? Nose and mouth were bulb suctioned.? Infant weight pending.? 8 at 1 minute and 9 at 5 minutes.? Shoulder dystocia: no.? Nuchal cord: no.? ?? Placenta delivered spontaneously at 1221 with a 3 vessel cord.?There was a large amount of trailing membranes that from the placenta with delivery of the placenta. Theses membranes were teased out with a ring forceps and rectal Cytotec was given to assist in their removal. There was a marginal cord insertion and a small accessory lobe noted. ?? Mother and infant were stable after delivery.? ?? Lacerations:?Dr. Salas was consulted for the laceration. There was a 3rd degree perineal labial and deep sulcal tear, repaired by Dr. Salas.? ?? Blood loss: 373 mL.? Blood loss measurement type: QBL? Sponge and needles counts are correct.? 1 Minute Interval Total Score: 8 5 Minute Interval Total Score: 9 Additional Details Shoulder Dystocia: No Placenta Delivery Time: 12:21 Placental Delivery Description: Spontaneous Procedure Done: Global Blood Loss: 373 Laceration: Perineal - 3rd Degree (and labial and sulcal ) Episiotomy Description: None Blood Loss Measurement Type: QBL Bakri Used: No Sponge/Need Count Correct: Yes Cord Vessel Description: 3 Vessels Event Summary Status: Mother and infant were stable after delivery. Disposition: floor
--- NOTE | 2022-08-27 15:13 | P.OBCN_ITS ---
OB - CN: HPI Date of Consult Date Seen: 08/27/22 Patient: [facility] Patient Consult date: 08/27/22 Requesting Physician: Nini Chavez CNM Primary Care Provider: Nini Chavez CNM Consult Narrative Reason for consult: vaginal repair Narrative: The patient is a 32 year old newly para 1 woman who just had an unmedicated spontaneous vaginal delivery at 40 weeks, 6 days gestation. Nini Chavez asked me to evaluate the patient due to suspected obstetric anal sphincter injury and trialing placental membranes. History History 1 Elective abortions Para 0 Spontaneous abortions Hx # Term Pregnancies Ectopic pregnancies Hx # Pregnancies Multiple births Number of Living Children 0 Labs Blood type: O (+) positive GBS status: positive OB Labs: Lab Assessment Start: 08/27/22 05:11 Freq: ONCE Status: Active Protocol: PC.OBGBS Activity Type Activity Date Activity User E-sign Co-sign Detail Recorded Client Recorded Date Recorded By Document 08/27/22 05:13 KAMRYN [id number] 08/27/22 05:15 KAMRYN 08/27/22 05:13 Lab Assessment GBS Status positive GBS Additional Criteria None Is Patient Allergic to Penicillin? Low Risk Reaction Susceptibility Studies Available? Clindamycin Resistant GBS Are Labs Available Yes Evaluate Maternal Rubella Immune Status Immune Hepatitis B Surface Antigen Negative Maternal HIV Status Negative Maternal Syphillis (RPR) Status Negative PFSH PFSH Medical History (Updated 08/27/22 @ 15:22 by Joanne Salas MD) No pertinent past medical history ?Z78.9 - Other specified health status (ICD-10) Surgical History (Updated 12/29/21 @ 09:42 by Nini Chavez CNM) [place] teeth removed ?K08.409 - Partial loss of teeth, unspecified cause, unspecified class (ICD- 10) Family History (Updated 12/29/21 @ 09:46 by Nini Chavez CNM) Brother Crohn disease Mother Anemia Early menopause Paternal Grandmother Breast cancer, Onset Age: 70 Paternal Grandfather Progressive supranuclear palsy Social History (Updated 12/30/21 @ 15:51 by Nini Chavez CNM) Narrative: SOCIAL Partner: [employer] nuclear scientist Lives with: Pets: none Abuse: Denies past unable to assess present Special Diet: Denies Ok with a blood transfusion: yes Culture or sikh beliefs: denies What is your current living situation?: I presently have a place to live Problems where you live: no known problems In the past 12 months, utilities in danger of being shut off: no In the past 12 mos, have been you worried that your food would run out before you had money to buy more?: never true In the past 12 mos, the food you bought just didn't last and you didn't have money to buy more?: never true Are you following a diet prescribed by a doctor: No Are you following a special diet: No 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 [employer] Highest level of school completed/degree received: Master's degree Physical activity type: bicycling, yoga and weight lifting How many days of moderate to strenuous exercise, like a brisk walk, did you do in the last 7 days: 4 Smoking Status: Never smoker Second hand tobacco smoke exposure: No Non-prescribed substance use: denies use Caffeine: No How often does anyone, including family, friends and others, physically hurt you : never How often does anyone, including family, friends and others, insult or talk down to you: never How often does anyone, including family, friends and others, threaten you with harm: never How often does anyone, including family, friends and others, scream or curse at you: never Little interest or pleasure in doing things: not at all Feeling down, depressed, or hopeless: not at all Meds Home Medications and Allergies Home Medications Medication Instructions Recorded Confirmed Type calcium carbonate 500 mg calcium 500 mg PO QDAY 12/29/21 08/27/22 History (1,250 mg) chewable tablet (Calcium 500) magnesium citrate 125 mg capsule 125 mg PO ONCE 12/29/21 08/27/22 History prenat.vits,elliott,[id number] 1 tab PO QDAY 12/29/21 08/27/22 History ascorbate calcium (vitamin C) 500 500 mg PO QDAY 02/02/22 08/27/22 History mg tablet cholecalciferol (vitamin D3) 10 10 mcg PO QDAY 02/02/22 08/27/22 History mcg (400 unit) capsule aspirin 81 mg tablet,delayed 81 mg PO QDAY 03/28/22 08/27/22 History release Allergies Allergy/AdvReac Type Severity Reaction Status Date / Time amoxicillin Allergy Mild Rash Verified 08/24/22 09:52 OB - H&P: Exam Physical Exam: Vital signs: Temp Pulse Resp BP Pulse Ox 97.5 F L 96 18 137/86 99 08/27/22 08:01 08/27/22 14:26 08/27/22 08:01 08/27/22 14:26 08/27/22 10:56 Narrative: When I enter the room, patient is in lithotomy position and holding her . Exam a of the vaginal introitus and perineum reveals a complicated second-degree laceration that involves partial avulsion of the perineal body and 3 C perineal laceration with complete disruption of the external sphincter. There continue to be placental membranes visible within vagina. Procedure note: Removal of placental membranes and repair of 3 C obstetrical laceration First, the placental membranes are grasped with ring forcep. These are teased gently towards the vaginal introitus, ultimately resulting in the removal of a considerable amount of membranes that did not tear during removal. The perineal and vaginal tissues are injected with a total of approximately 20 mL of 1% lidocaine. The external sphincter is identified and grasped with Allis clamps. It is reapproximated with a series of [id number] sutures of 0 Vicryl. Next, the deep perineal body is reapproximated with several sutures of 2 0 Vicryl. The laceration at the introitus extends up the left vaginal sulcus and into the left labium. The vaginal sulcal portion was reapproximated with 2-0 Vicryl in a running fashion. The left labial portion was also reapproximated with 2-0 Vicryl in a running fashion. The superficial portion of the perineum that was able stores patient left side was rejoin to that of the right with 2 0 Vicryl, and this repair was brought cephalic towards the vaginal introitus, meeting the sutures that were done previously. Finally, the skin of the perianal area and perineum was reapproximated with 3 0 Vicryl in a running fashion. Rectal exam revealed no presence of sutures and sturdy reapproximation of external sphincter and perineal body. Patient tolerated procedures remarkably well. OB - CN: A/P Assessment and Plan (1) Obstetric vaginal laceration with type 3c third degree perineal laceration: Status: Acute Assessment and Plan: Repaired as noted above. I recommended an additional dose of cefazolin for prophylaxis against infection and wound breakdown, and I recommend medication to achieve daily bowel movements. This may include MiraLax or mineral oil as necessary.
[2022-08-27] MEDS: IBUPROFEN 600 MG TABLET PO ×2 (15:29→21:17)
[2022-08-27] MEDS: CEFAZOLIN 1 GM in 0.9 % SODIUM CHLORIDE Mini-bag 100 ML IVPB (16:05)
[2022-08-28 01:57] VITALS: BP 124/83; PULSE 83; RESP 16; TEMP 36.4; O2SAT 98
[2022-08-28 05:53] VITALS: BP 127/89; PULSE 91; RESP 16; TEMP 36.6; O2SAT 99
[2022-08-28] MEDS: IBUPROFEN 600 MG TABLET PO (05:59)
[2022-08-28 07:17] LABS: Hemoglobin* 10.4 gm/dL (12.0-16.0)
--- NOTE | 2022-08-28 07:24 | PM.OBDSVD1 ---
DS: Providers Provider Time Seen by Provider: 07:25 Date Seen: 08/28/22 Date of admission: 08/27/22 04:49 Primary care physician: Nini Chavez CNM Admitting Clinician: Nini Cahvez CNM Attending Physician on discharge: Nini Chavez CNM Date of Discharge: 08/28/22 DS: Diagnosis Discharge Diagnosis (1) NVD (normal vaginal delivery): Status: Acute (2) Obstetric vaginal laceration with type 3c third degree perineal laceration: Status: Acute (3) Lactating mother: Status: Acute Exam Narrative: Exam Narrative: VSS, afebrile GENERAL APPEARANCE: ?normal affect, alert, no distress MOOD: ?appropriate HEENT: normocephalic, neck supple, full ROM CHEST: ?Symmetrical chest wall movement. ?Normal respiratory effort. ?Clear to auscultation HEART: ?regular rate and rhythm ABDOMEN: ?soft, non-tender. Uterine fundus is firm, at Umbilicus, Midline and is appropriate for the stage of recovery. ?Bowel sounds present. PERINEUM: ?Moderate edema of the perineum, there is a 3rd degree laceration that is healing well. Small area of bruising noted EXTREMITIES: ?normal and no edema Const: Vital Signs, click to edit/add: Vital Signs - 24 hr 08/27/22 08:01 08/27/22 09:36 08/27/22 10:56 Temperature 97.5 F L Pulse Rate 89 82 Pulse Rate [Blood Pressure Cuff] Respiratory Rate 18 Blood Pressure 134/78 118/64 Blood Pressure [Le ft Arm] Pulse [facility]xim[facility] 99 [facility] 12:22 08/27/22 12:37 08/27/22 12:52 Temperature Pulse Rate 83 87 85 Pulse Rate [Blood Pressure Cuff] Respiratory Rate Blood Pressure 135/97 H 138/99 H 156/100 H Blood Pressure [Le ft Arm] Pulse Oximetry [facility]/27[facility]22 13:07 08/27/22 13:22 08/27/22 13:37 Temperature Pulse Rate 103 H 105 H 85 Pulse Rate [Blood Pressure Cuff] Respiratory Rate Blood Pressure 158/91 H 149/84 H 132/79 Blood Pressure [Le ft Arm] Pulse Oximetry [facility] 13:50 08/27/22 13:51 08/27/22 14:08 Temperature Pulse Rate 101 H 97 91 Pulse Rate [Blood Pressure Cuff] Respiratory Rate Blood Pressure 155/100 H 156/81 H 137/90 H Blood Pressure [Le ft Arm] Pulse Oximetry Oxygen Delivery Me thod 08/27/22 14:26 08/27/22 21:10 08/28/22 01:57 Temperature 97.8 F 97.5 F L Pulse Rate 96 Pulse Rate [Blood Pressure Cuff] 83 Respiratory Rate 16 16 Blood Pressure 137/86 Blood Pressure [Le ft Arm] 133/87 124/83 Pulse Oximetry 98 98 Oxygen Delivery Me thod Room Air Room Air 08/28/22 05:53 Temperature 97.8 F Pulse Rate Pulse Rate [Blood Pressure Cuff] 91 Respiratory Rate 16 Blood Pressure Blood Pressure [Le ft Arm] 127/89 Pulse Oximetry 99 Oxygen Delivery Me thod Room Air Documenting provider has reviewed patient's vital signs: yes OB - DS: Summary Hospital Course Hospital Course: Anika is a 32 y.o. G 1 P 1 who was admitted to [facility] for labor. ?She had an NVD complicated by a 3rd degree laceration The patient feels well. ?The pain is well controlled with current medications. ?She has no new complaints. ?She is breast feeding and reports things are going ok. Baby has been a little sleepy, but she has been able to express breastmilk to feed baby.? the patient has done well.? Vitals have been stable.? She has remained afebrile.? Has a good appetite, is tolerating a general diet. ?She is voiding without difficulty.? She is passing gas and has not had a bowel movement.? She is ambulating and denies any dizziness.? Has Small amount of rubra lochia. Problems: Elevated BPs noted shortly after delivery. WNL at this time. plan: Discharge home with baby. Follow up in 2 weeks and 6 weeks. , may follow up with if needed Hgb pending. 3rd degree laceration -Stool softeners and miralax Elevated BPs shortly after delivery. WNL now. -Follow up in 3-5 days -Call for signs/symptoms of preeclampsia Peripartum Data delivery method: Vaginal Laceration description: Perineal - 3rd Degree Gender: Male Status at Discharge Functional status at discharge: independent ambulation Overall status at discharge: patient is progressing back to baseline Time Spent with Patient Time attestation: Total time spent providing and/or coordinating discharge services: Time spent: Less than 30 minutes Discharge Plan Discharge Disposition: Home, Self-Care Date of Admission: 08/27/22 04:49 Attending Provider on Discharge: Pilar England Primary Care Provider: Nini Chavez Condition: Stable Anticipated Discharge Date/Time: 08/28/22 16:00 Discharge Medications: New docusate sodium 100 mg Capsule 100 mg PO BID Qty: 100 0RF ibuprofen 600 mg Tablet 600 mg PO Q6H PRNQty: 60 0RF Continued prenat.vits,elliott,[id number]-gcqno Tablet 1 tab PO QDAY magnesium citrate 125 mg capsule 125 mg PO ONCE calcium carbonate [Calcium 500] 500 mg calcium (1,250 mg) tablet,chewable 500 mg PO QDAY ascorbate calcium (vitamin C) 500 mg tablet 500 mg PO QDAY cholecalciferol (vitamin D3) 10 mcg (400 unit) capsule 10 mcg PO QDAY Discontinued aspirin 81 mg tablet,delayed release (DR/EC) 81 mg PO QDAY Discharge Orders: Discharge Order (Routine); Ordered 08/28/22 Ordered By: Pilar England Patient Education: OB Over the Counter Medication Information, OB Vaginal/Breast Feeding Additional Instructions: Follow up in 3-5 days for a blood pressure check. Can be a nurse only visit. Follow up in 2 weeks and 6 weeks. Continue colace twice a day. Miralax once a day. Can additionally add in Senna if needed to prevent constipation. Activity Level: Activity as Tolerated Discharge Diet: Regular Follow Up Appointments: Nini Chavez CNM [Primary Care Provider] - Forms: [employer] Info Instructions
[2022-08-28 08:06] VITALS: BP 118/82; PULSE 77; RESP 16; TEMP 36.5; O2SAT 99
[2022-08-28 12:30] VITALS: BP 126/72; PULSE 64; RESP 16; TEMP 36.4; O2SAT 99
== END 2022-08-28 16:00 | disposition home or self-care (01) | DRG 541 ==
LOC: OB OUT 04:52 → OB 04:52
PROVIDERS: Admitting Provider Advanced Practice Midwife; Visit Provider Advanced Practice Midwife
DX: O48.0 Post-term pregnancy (principal); O70.23 Third degree perineal laceration during delivery, IIIc; O73.1 Retained portions of placenta and membranes, without hemorrhage; O99.824 Streptococcus B carrier state complicating childbirth; Z3A.40 40 weeks gestation of pregnancy; Z37.0 Single live birth
CPT/HCPCS: 36415; 85018; A9270; J0690; J2001; J7120